=== PATIENT | male | born 1975 | race African-American/Black ===

== ENCOUNTER 2017-08-25 00:36 | Emergency (ER) | payer OTHER ==
[~2017-08-25] VITALS: Ht 175.3 cm; Wt 92.0 kg
[2017-08-25 00:45] VITALS: BP 151/91
== END 2017-08-25 03:00 | disposition left against medical advice (07) ==
LOC: ER 00:36
DX: R07.9 Chest pain, unspecified (principal); Z53.21 Procedure and treatment not carried out due to patient leaving prior to being seen by health care provider